=== PATIENT | female | born 1960 | race African-American/Black ===

== ENCOUNTER 2016-12-12 03:52 | Inpatient (IN) | payer OTHER ==
[2016-12-12] VITALS (11 sets, daily range): BP systolic 118–158; BP diastolic 58–79; PULSE 65–82; RESP 16–20; TEMP 96.5–98.1; O2SAT 92–97
[~2016-12-12] VITALS: Ht 170.2 cm; Wt 136.7 kg
[~2016-12-12 03:52] MED LIST: AMLO5TAB22 PO; BENZ100 PO; GABA400C5 PO; GLIP5 PO; GLUC1000 PO; HYDR12.56 PO; LISI2.5T55 PO; PIOG15 PO; ZITH250T PO
[2016-12-12] MEDS ORDERED: SODIUM CHLORIDE 0.9% FLUSH 10 ML FLUSH IVF PRN (04:30)
[2016-12-12] MEDS ORDERED: OMEP20TA PO (04:39)
[2016-12-12] MEDS ORDERED: FEXO15TA PO (04:39)
[2016-12-12] MEDS ORDERED: METF1000 PO (04:39)
[2016-12-12] MEDS ORDERED: RANI150T PO (04:39)
[2016-12-12] MEDS ORDERED: LISI2.5T3 PO (04:39)
[2016-12-12] MEDS ORDERED: METO25TA3 PO (04:39)
[2016-12-12] MEDS ORDERED: AMLO5TAB2 PO (04:39)
[2016-12-12] MEDS ORDERED: GABA400C5 PO (04:39)
[2016-12-12] MEDS ORDERED: HYDR25TA5 PO (04:39)
[2016-12-12] MEDS ORDERED: GLIP10TA6 PO (04:39)
[2016-12-12] MEDS ORDERED: LEVO75TA3 PO (04:39)
[2016-12-12] MEDS ORDERED: LEXA10TA PO (04:39)
[2016-12-12] MEDS ORDERED: NABU1TAB37 PO (04:39)
[2016-12-12] MEDS: RESP: ALBUTEROL 2.5 MG/IPRATROPIUM 0.5 MG NEB (SCH) INH ×3 (04:40→05:16)
--- NOTE | 2016-12-12 04:42 | PD ---
HPI Chief Complaint: Respiratory Symptoms Time Seen by Provider: 04:13 Travel History International Travel<30 days: No Contact w/Intl Traveler<30days: No Traveled to known affect area: No History of Present Illness HPI The patient is a 56-year-old female that complains of shortness of breath tonight. She has wheezes but denies any fever and does have a mostly nonproductive cough. She denies any history of congestive heart failure. She smokes one half pack a day. She has had bronchitis in the past. She does not have a nebulizer machine at home. The patient states she has fatigued and exhausted. PFSH Past Medical History Hx Anticoagulant Therapy: No Asthma: Yes Cardiovascular Problems: Yes (htn on meds) COPD: Yes Diabetes: Yes (type 2) Diminished Hearing: No GERD: Yes Hiatal Hernia: Yes Hypertension: Yes Menopausal: Yes : 5 Para: 4 Miscarriage: 1 Ovarian Cysts: Yes (RUPTURED, LEFT OVARY) Tubal Ligation: Yes (l. ovary and tube removal) Past Surgical History Gynecologic Surgery: Yes (LEFT SALPINGO-OOPHERECTOMY) Social History Alcohol Use: No Tobacco Use: No Substance Use: No Allergies-Medications (Allergen,Severity, Reaction): Coded Allergies: Sulfa (Sulfonamide Antibiotics) (Unverified Allergy, Severe, 12/12/16) Reported Meds & Prescriptions Reported Meds & Active Scripts Active Reported Omeprazole 20 Mg Tab 20 Mg PO DAILY [place] Allergy (Fexofenadine HCl) 180 Mg Tab 180 Mg PO DAILY Gabapentin 400 Mg Cap 400 Cap PO TID Ranitidine (Ranitidine HCl) 150 Mg Tab 150 Mg PO BID Glipizide 10 Mg Tab 10 Mg PO BIDAC Take 30 minutes before a meal Metformin (Metformin HCl) 1,000 Mg Tab 1,000 Mg PO BIDPC With meals Levothyroxine (Levothyroxine Sodium) 75 Mcg Tab 75 Mcg PO DAILY Amlodipine (Amlodipine Besylate) 5 Mg Tab 5 Mg PO DAILY Lisinopril 2.5 Mg Tab 2.5 Mg PO DAILY Lexapro (Escitalopram Oxalate) 10 Mg Tab 10 Mg PO DAILY Nabumetone 500 Mg Tab 500 Mg PO BID Metoprolol Tartrate 25 Mg Tab 25 Mg PO BID Hydrochlorothiazide 25 Mg Tab 25 Mg PO DAILY Review of Systems Except as stated in HPI: all other systems reviewed are Neg Physical Exam Narrative GENERAL: The patient is alert, oriented 3, obese and slight respiratory distress. Her vital signs show blood pressure 158/92 with oximetry 92%. Apparently, the patient was 99% after sitting but went down to 91% after walking. SKIN: Focused skin assessment warm/dry. HEAD: Atraumatic. Normocephalic. EYES: Pupils equal and round. No scleral icterus. No injection or drainage. ENT: No nasal bleeding or discharge. Mucous membranes pink and moist. NECK: Trachea midline. No JVD. CARDIOVASCULAR: Regular rate and rhythm. No murmur appreciated. RESPIRATORY: No accessory muscle use. Bilateral wheezes are heard in all lung cardona. Breath sounds equal bilaterally. GASTROINTESTINAL: Abdomen soft, non-tender, nondistended. Hepatic and splenic margins not palpable. No guarding or rebound is present. MUSCULOSKELETAL: No obvious deformities. No clubbing. No cyanosis. No edema. NEUROLOGICAL: Awake and alert. No obvious cranial nerve deficits. Motor grossly within normal limits. Normal speech. PSYCHIATRIC: Appropriate mood and affect; insight and judgment normal. Data Data Last Documented VS Vital Signs Date Time Temp Pulse Resp B/P (MAP) Pulse Ox O2 Delivery O2 Flow Rate FiO2 12/12/16 05:51 81 18 129/58 (81) 94 Room Air 12/12/16 04:19 98.1 Orders Orders Complete Blood Count With Diff (12/12/16 04:19) Basic Metabolic Panel (Bmp) (12/12/16 04:19) B-Type Natriuretic Peptide (12/12/16 04:19) Troponin I (12/12/16 04:19) Iv Access Insert/Monitor (12/12/16 04:19) Ecg Monitoring (12/12/16 04:19) Oximetry (12/12/16 04:19) Oxygen Administration (12/12/16 04:19) Chest, Pa & Lat (12/12/16 04:19) Sodium Chloride 0.9% Flush (Ns Flush) (12/12/16 04:30) Albuterol-Ipratropium Neb (Duoneb Neb) (12/12/16 04:30) Methylprednisolone So Succ Inj (Solumedr (12/12/16 05:45) Blood Culture (12/12/16 05:31) Ceftriaxone Inj (Rocephin Inj) (12/12/16 05:45) Azithromycin Inj (Zithromax Inj) (12/12/16 05:45) Arterial Blood Gas (Abg) (12/12/16 ) Labs Laboratory Tests Test 12/12/16 04:30 12/12/16 05:00 12/12/16 05:45 White Blood Count 6.9 TH/MM3 Red Blood Count 4.12 MIL/MM3 Hemoglobin 11.3 GM/DL Hematocrit 34.0 % Mean Corpuscular Volume 82.6 FL Mean Corpuscular Hemoglobin 27.5 PG Mean Corpuscular Hemoglobin Concent 33.3 % Red Cell Distribution Width 15.1 % Platelet Count 243 TH/MM3 Mean Platelet Volume 8.4 FL Neutrophils (%) (Auto) 55.4 % Lymphocytes (%) (Auto) 31.0 % Monocytes (%) (Auto) 8.9 % Eosinophils (%) (Auto) 3.8 % Basophils (%) (Auto) 0.9 % Neutrophils # (Auto) 3.8 TH/MM3 Lymphocytes # (Auto) 2.1 TH/MM3 Monocytes # (Auto) 0.6 TH/MM3 Eosinophils # (Auto) 0.3 TH/MM3 Basophils # (Auto) 0.1 TH/MM3 CBC Comment DIFF FINAL Differential Comment B-Type Natriuretic Peptide 68 PG/ML Blood Urea Nitrogen 14 MG/DL Creatinine 0.70 MG/DL Random Glucose 121 MG/DL Calcium Level 7.7 MG/DL Sodium Level 142 MEQ/L Potassium Level 3.5 MEQ/L Chloride Level 107 MEQ/L Carbon Dioxide Level 28.2 MEQ/L Anion Gap 7 MEQ/L Estimat Glomerular Filtration Rate 106 ML/MIN Troponin I LESS THAN 0.02 NG/ML Blood Gas Puncture Site RT RADIAL Blood Gas Patient Temperature 98.6 Blood Gas HCO3 28 mmol/L Blood Gas Base Excess 2.9 mmol/L Blood Gas Oxygen Saturation 89 % Arterial Blood pH 7.39 Arterial Blood Partial Pressure CO2 46 mmHG Arterial Blood Partial Pressure O2 65 mmHG Arterial Blood Oxygen Content 14.3 Vol % Arterial Blood Carboxyhemoglobin 2.7 % Arterial Blood Methemoglobin 1.1 % Blood Gas Hemoglobin 11.4 G/DL Blood Gas Inspired Oxygen 21 % [facility] Medical Decision Making Medical Screen Exam Complete: Yes Emergency Medical Condition: Yes Medical Record Reviewed: Yes Interpretation(s) The CBC shows a hemoglobin of 11.3 and hematocrit of 34.0 but is otherwise unremarkable. The basic metabolic profile shows a glucose of 121 and the calcium of 7.7 but the rest of the basic metabolic profile is normal. The chest x-ray shows bilateral infiltrates present. The troponin I is normal. The blood gases show pH 7.39, CO2 46, PO2 65 with O2 sat 89%. Carboxyhemoglobin is 2.7. The BNP is normal. Differential Diagnosis Asthma, bronchitis, pneumonia, pneumothorax-unlikely, congestive heart failure- unlikely Narrative Course It is now 0524 and the patient is not wheezing but bilateral rhonchi are heard. The chest x-ray shows bilateral infiltrates. The patient's oximetry drops to 91/90 with any walking or exertion. The patient also has a low O2 saturation of 89% on blood gases that were drawn almost immediately after 3 DuoNeb treatments. The patient is extremely fatigued and exhausted. She is not a good candidate for at-home treatment. Impression: Community-acquired pneumonia, hypoxemia Procedures EKG Prior to Arrival: No Physician Communication Physician Communication I discussed the patient with Dr. Gil, the patient will be admitted to her. Diagnosis Primary Impression: Community acquired pneumonia Additional Impression: Hypoxemia Admitting Information Admitting Physician Requests: Admit Mike Dillon MD Dec 12, 2016 04:42
[2016-12-12 04:51] LABS: AUTOMATED NEUTROPHIL # 3.8 TH/MM3 (1.8-7.7); BASOPHIL # 0.1 TH/MM3 (0-0.2); BASOPHIL % 0.9 % (0.0-2.0); EOSINOPHIL # 0.3 TH/MM3 (0-0.4); EOSINOPHIL % 3.8 % (0.0-4.0); HEMO FLAGS DIFF FINAL; LYMPHOCYTE # 2.1 TH/MM3 (1.0-4.8); MEAN CELL VOLUME 82.6 FL (80.0-100.0); MEAN CORPUSCULAR HEMOGLOBIN 27.5 PG (27.0-34.0); MEAN CORPUSCULAR HGB CONC 33.3 % (32.0-36.0); MONO % 8.9 % (0.0-8.0); NEUT % 55.4 % (16.0-70.0); PLATELET COUNT 243 TH/MM3 (150-450); RED BLOOD COUNT 4.12 MIL/MM3 (4.00-5.30); RED CELL DISTRIBUTION WIDTH 15.1 % (11.6-17.2); WHITE BLOOD COUNT 6.9 TH/MM3 (4.0-11.0)
--- NOTE | 2016-12-12 05:25 | RADRPT ---
EXAM DATE/TIME: 12/12/2016 04:30 [place] COMPARISON: No previous studies available for comparison. INDICATIONS : Shortness of breath. MEDICAL HISTORY : Hypertension. Chronic obstructive pulmonary disease. Asthma. SURGICAL HISTORY : None. ENCOUNTER: Initial ACUITY: 2 days PAIN SCORE: 0/10 LOCATION: Bilateral chest FINDINGS: Diffuse bibasilar predominant bilateral infiltrates are present. No large effusion seen. No pneumotho rax. Heart size is normal. CONCLUSION: Bilateral airspace disease. Bharat Razo MD on December 12, 2016 at 5:23 Board Certified Radiologist. This report was verified electronically.
[2016-12-12 05:27] LABS: CHLORIDE 107 MEQ/L (98-107); POTASSIUM 3.5 MEQ/L (3.5-5.1); SODIUM (NA) 142 MEQ/L (136-145)
[2016-12-12 05:30] LABS: ANION GAP 7 MEQ/L (5-15); BICARBONATE 28.2 MEQ/L (21.0-32.0); BLOOD UREA NITROGEN 14 MG/DL (7-18)
[2016-12-12 05:33] LABS: GLOMERULAR FILTRATION RATE 106 ML/MIN (>89)
[2016-12-12] MEDS ORDERED: methylPREDNISolone SOD SUCC 125 MG/2 ML VIAL IV PUSH ONE (05:45)
[2016-12-12] MEDS ORDERED: AZITHROMYCIN INJ 500 MG in SODIUM CHLOR 0.9% 250 ML INJ 250 ML IV ONE (05:45)
[2016-12-12] MEDS ORDERED: cefTRIAXone INJ 1,000 MG in SODIUM CHLORIDE 0.9% INJ 100 ML IV ONE (05:45)
[2016-12-12 05:55] LABS: BLOOD GAS BASE EXCESS 2.9 mmol/L (-2-2); BLOOD GAS CARBOXYHEMOGLOBIN 2.7 % (0-4); BLOOD GAS HCO3 28 mmol/L (22-26); BLOOD GAS METHEMOGLOBIN 1.1 % (0-2); BLOOD GAS O2 HGB SATURATION 89 % (90-100); BLOOD GAS OXYGEN CONTENT 14.3 Vol % (12.0-20.0); BLOOD GAS PCO2 46 mmHG (38-42); BLOOD GAS PO2 65 mmHG (61-120); BLOOD GAS TOTAL HGB 11.4 G/DL (12.0-16.0); TEMP CORR TO 98.6
[2016-12-12 05:56] LABS: CRITICAL VALUE YES; DRAW SITE RT RADIAL; FIO2 21 %; NUMBER OF ARTERIAL PUNCTURES 2; STAT YES; ULNAR PULSE PRESENT
[2016-12-12] MEDS ORDERED: LACTULOSE SYRUP 20 GM/30 ML CUP PO PRN (06:15)
[2016-12-12] MEDS ORDERED: DEXTROSE 50% IN WATER 50 ML VIAL(D50) IV PUSH PRN (06:15)
[2016-12-12] MEDS ORDERED: RESP: ALBUTEROL 2.5 MG/IPRATROPIUM 0.5 MG NEB (PRN) NEB ×2 (06:15→09:15)
[2016-12-12] MEDS ORDERED: ONDANSETRON HCL 4 MG/2 ML VIAL IVP PRN (06:15)
[2016-12-12] MEDS ORDERED: SENNOSIDES 8.6 MG TAB PO PRN (06:15)
[2016-12-12] MEDS ORDERED: GLUCAGON 1 MG/ML VIAL OTHER PRN (06:15)
[2016-12-12] MEDS ORDERED: oxyCODONE/ACETAMINOPHEN 5 MG/325 MG TAB PO PRN (06:15)
[2016-12-12] MEDS ORDERED: ACETAMINOPHEN 325 MG TAB PO PRN (06:15)
[2016-12-12] MEDS ORDERED: BISACODYL 10 MG SUPP RECTAL PRN (06:15)
[2016-12-12] MEDS ORDERED: SODIUM CHLORIDE 0.9% FLUSH 10 ML FLUSH IV FLUSH PRN (06:15)
[2016-12-12] MEDS: oxyCODONE/ACETAMINOPHEN 10 MG/325 MG TAB PO PRN ×3 (06:43→17:07)
[2016-12-12] MEDS ORDERED: oxyCODONE/ACETAMINOPHEN 7.5 MG/325 MG TAB PO ONE (06:45)
[2016-12-12] MEDS ORDERED: PILL SPLITTER OTHER PRN (06:45)
[2016-12-12] MEDS: metFORMIN HCL 500 MG TAB PO SCH ×2 (08:35→17:06)
[2016-12-12] MEDS: INSULIN ASPART SUPPLEMENTAL SCALE SQ SCH ×4 (08:35→21:19)
[2016-12-12] MEDS: SODIUM CHLORIDE 0.9% FLUSH 10 ML FLUSH IV FLUSH SCH ×2 (08:35→21:18)
[2016-12-12] MEDS: DOCUSATE SODIUM 50 MG/SENNA 8.6 MG TAB PO SCH ×2 (08:36→21:18)
[2016-12-12] MEDS: amLODIPine BESYLATE 5 MG TAB PO SCH (08:36)
[2016-12-12] MEDS: PANTOPRAZOLE SOD 20 MG DELAYED RELEASE TAB PO SCH (08:36)
[2016-12-12] MEDS: METOPROLOL TARTRATE 25 MG TAB PO SCH ×2 (08:36→21:18)
[2016-12-12] MEDS: GABAPENTIN 400 MG CAP PO SCH ×3 (08:36→17:06)
[2016-12-12] MEDS: LISINOPRIL 5 MG TAB PO SCH (08:36)
[2016-12-12] MEDS: ESCITALOPRAM OXALATE 10 MG TAB PO SCH (08:36)
[2016-12-12] MEDS ORDERED: POTASSIUM CHLORIDE 20 MEQ CONTROLLED RELEASE TAB PO ONE (09:15)
[2016-12-12] MEDS ORDERED: FUROSEMIDE 40 MG/4 ML VIAL IV PUSH ONE (09:15)
[2016-12-12] MEDS: HYDROCHLOROTHIAZIDE 25 MG TAB PO SCH (10:11)
[2016-12-12] MEDS: LEVOTHYROXINE SODIUM 75 MCG TAB PO SCH (10:11)
--- NOTE | 2016-12-12 11:48 | HHI.HP ---
[facility] Service [facility] Primary Care Physician Silas Leon M.D. Admission Diagnosis community-acquired bilateral pneumonia, hypoxemia Diagnoses: (1) Community acquired pneumonia Diagnosis: Principal (2) Hypoxemia Diagnosis: Principal (3) Chronic obstructive pulmonary disease Diagnosis: Principal Chief Complaint: Shortness of breath, dyspnea, lower extremity edema Travel History International Travel<30 Days: No Contact w/Intl Traveler <30 Da: No Traveled to Known Affected Are: No History of Present Illness Written by Jon Dillon, acting as scribe for Dr. Martin on 12/12/16 at 11 :35. 86-year-old female with known history of chronic affective pulmonary disease, chronic smoking, hypertension, history of tachycardia, diabetes, panic attacks who presented to hospital because of shortness of breath, dyspnea. Patient states that over the last 1-1/2 weeks she has been having a cough with clear phlegm production. She started developing a pain in her back around the right lower rib cage that has progressively getting worse. She states that Monday of this week she ran out of her HCTZ. As well as she ran out of her Proventil inhaler. Since then she's been experiencing increased lower extremity edema, dyspnea on exertion, shortness of breath, and orthopnea. Patient states that she cannot lay flat at all that she has to prop herself up and a full sitting position. Patient states that she does have COPD and she used to use Proventil as well as Advair. However she has ran out of those medications. Because her symptoms did not improve she came to the emergency department for evaluation. Patient had workup done which did indicate bilateral infiltrates on chest x-ray , hypoxemia with O2 saturation 89% with ABG.. Patient states that she did have significant wheezing. She was given nebulizer treatments in the emergency department with significant improvement of her respiratory status. Patient was recommended admission for further evaluation and management. Review of Systems Respiratory: COMPLAINS OF: Cough, Sputum production, Shortness of breath Cardiovascular: COMPLAINS OF: Dyspnea on Exertion, Lower Extremity Edema, Orthopnea Except as stated in HPI: all other systems reviewed are Neg Past Family Social History Past Medical History Hypertension Chronic obstructive pulmonary disease Panic attacks Diabetes Gastroesophageal reflux History of tachycardia 1 month ago with heart rate 240 improved with vagal maneuver and simply followed by manufacturing specialist and placed on metoprolol Past Surgical History Left salpingo-oophorectomy Reported Medications Last Impressions Chest X-Ray 12/12/16 0419 Signed Impressions: Service Date/Time: Monday, December 12, 2016 04:30 - CONCLUSION: Bilateral airspace disease. Bharat Razo MD Allergies: Coded Allergies: Sulfa (Sulfonamide Antibiotics) (Unverified Allergy, Severe, 12/12/16) Family History Reviewed is significant for mother with diabetes, hypertension, father with diabetes, hypertension, hyperlipidemia, seizures, brother with prostate cancer and colon cancer Social History Patient continues to smoke one half pack a cigarettes a day since she was 23 years old. Drinks alcohol occasionally. Denies any illicit drugs Physical Exam Vital Signs Vital Signs Date Time Temp Pulse Resp B/P (MAP) Pulse Ox O2 Delivery O2 Flow Rate FiO2 12/12/16 08:00 96.8 74 20 135/79 (97) 95 12/12/16 07:51 12/12/16 07:30 18 12/12/16 07:06 78 16 144/59 (87) 96 Nasal Cannula 2.00 12/12/16 05:51 81 18 129/58 (81) 94 Room Air 12/12/16 04:22 66 18 92 Room Air 12/12/16 04:22 92 Room Air 12/12/16 04:22 92 12/12/16 04:19 98.1 65 18 134/61 (85) 92 12/12/16 03:57 98.1 74 18 158/72 (100) 92 Physical Exam GENERAL: Well-developed, well-nourished, in no acute distress. alert and orientated HEENT: Head is normocephalic without any lesions or masses noted. Facial features are symmetric. Eyes: Pupils equal round reactive to light. Extraocular muscles are intact. Conjunctivae were clear. Oropharyngeal: Pharynx without any erythema edema. Tongue is midline without deviation. Buccal mucosa is moist without any masses or lesions NECK: Supple without any masses. Trachea midline no deviation. No JVD, no bruits are appreciated CARDIAC: Regular rhythm, regular rate. S1/S2 are heard. No murmurs gallops or rubs. LUNGS: Fine crackles noted in the bases, No wheeze, rhonchi. No use of accessory muscles on inspiration or expiration. Patient with forced speech due to shortness of breath, cannot speak full sentences ABDOMEN: Soft, nontender. Nondistended. Bowel sounds heard in all 4 quadrants. No organomegaly or masses. Negative rebound, negative guarding EXTREMITIES: 2+ pitting edema noted bilateral lower extremity, pulses are equal bilaterally. No cyanosis or clubbing NEUROLOGY: Mood and affect appear appropriate. Cranial nerves II through XII grossly intact. Muscle strength 5/5 in upper and lower extremities bilaterally. Deep tendon reflexes are 2+ in upper and lower extremities bilaterally. Laboratory Laboratory Tests Test 12/12/16 04:30 12/12/16 05:00 12/12/16 05:45 White Blood Count 6.9 Red Blood Count 4.12 Hemoglobin 11.3 Hematocrit 34.0 Mean Corpuscular Volume 82.6 Mean Corpuscular Hemoglobin 27.5 Mean Corpuscular Hemoglobin Concent 33.3 Red Cell Distribution Width 15.1 Platelet Count 243 Mean Platelet Volume 8.4 Neutrophils (%) (Auto) 55.4 Lymphocytes (%) (Auto) 31.0 Monocytes (%) (Auto) 8.9 Eosinophils (%) (Auto) 3.8 Basophils (%) (Auto) 0.9 Neutrophils # (Auto) 3.8 Lymphocytes # (Auto) 2.1 Monocytes # (Auto) 0.6 Eosinophils # (Auto) 0.3 Basophils # (Auto) 0.1 CBC Comment DIFF FINAL Differential Comment B-Type Natriuretic Peptide 68 Blood Urea Nitrogen 14 Creatinine 0.70 Random Glucose 121 Calcium Level 7.7 Sodium Level 142 Potassium Level 3.5 Chloride Level 107 Carbon Dioxide Level 28.2 Anion Gap 7 Estimat Glomerular Filtration Rate 106 Troponin I LESS THAN 0.02 Blood Gas Puncture Site RT RADIAL Blood Gas Patient Temperature 98.6 Blood Gas HCO3 28 Blood Gas Base Excess 2.9 Blood Gas Oxygen Saturation 89 Arterial Blood pH 7.39 Arterial Blood Partial Pressure CO2 46 Arterial Blood Partial Pressure O2 65 Arterial Blood Oxygen Content 14.3 Arterial Blood Carboxyhemoglobin 2.7 Arterial Blood Methemoglobin 1.1 Blood Gas Hemoglobin 11.4 Blood Gas Inspired Oxygen 21 Date/Time Source Procedure Growth Status 12/12/16 05:40 Blood Peripheral Aerobic Blood Culture Pending Received 12/12/16 05:40 Blood Peripheral Anaerobic Blood Culture Pending Received Result Diagram: 12/12/16 0430 12/12/16 0500 Imaging Last Impressions Chest X-Ray 12/12/16418 Signed Impressions: Service Date/Time: Monday, December 12, 2016 04:30 - CONCLUSION: Bilateral airspace disease. MD Olive Niño VTE Risk Assessment Olive VTE Risk Assessment: Mod/High Risk (score >= 2) Porfiriorini Risk Assessment Model Point Value = 1 Point Value = 2 Point Value = 3 Point Value = 5 Age 41-60 Minor surgery BMI > 25 kg/m2 Swollen legs Varicose veins or History of unexplained or recurrent spontaneous Oral contraceptives or hormone replacement Sepsis (< 1 month) Serious lung disease, including pneumonia (< 1 month) Abnormal pulmonary function Acute myocardial infarction Congestive heart failure (< 1 month) History of inflammatory bowel disease Medical patient at bed rest Age 61-74 Arthroscopic surgery Major open surgery (> 45 min) Laparoscopic surgery (> 45 min) Malignancy Confined to bed (> 72 hours) Immobilizing plaster cast Central venous access Age >= 75 History of VTE Family history of VTE Factor V Leiden Prothrombin [id number] Lupus anticoagulant Anticardiolipin antibodies Elevated serum homocysteine Heparin-induced thrombocytopenia Other congenital or acquired thrombophilia Stroke (< 1 month) Elective arthroplasty Hip, pelvis, or leg fracture Acute spinal cord injury (< 1 month) Prophylaxis Regimen Total Risk Factor Score Risk Level Prophylaxis Regimen 0-1 Low Early ambulation 2 Moderate Order ONE of the following: *Sequential Compression Device (SCD) *Heparin 5000 units SQ BID 3-4 Higher Order ONE of the following medications: *Heparin 5000 units SQ TID *Enoxaparin/Lovenox 40 mg SQ daily (WT < 150 kg, CrCl > 30 mL/min) *Enoxaparin/Lovenox 30 mg SQ daily (WT < 150 kg, CrCl > 10-29 mL/min) *Enoxaparin/Lovenox 30 mg SQ BID (WT < 150 kg, CrCl > 30 mL/min) AND/OR *Sequential Compression Device (SCD) 5 or more Highest Order ONE of the following medications: *Heparin 5000 units SQ TID (Preferred with Epidurals) *Enoxaparin/Lovenox 40 mg SQ daily (WT < 150 kg, CrCl > 30 mL/min) *Enoxaparin/Lovenox 30 mg SQ daily (WT < 150 kg, CrCl > 10-29 mL/min) *Enoxaparin/Lovenox 30 mg SQ BID (WT < 150 kg, CrCl > 30 mL/min) AND *Sequential Compression Device (SCD) Assessment and Plan Assessment and Plan 56-year-old female who presented to hospital because of Shortness of breath, dyspnea which is multifactorial with patient with known history of COPD, running out of her prescriptions Chronic obstructive pulmonary disease, possible exacerbation Blood gases indicate hypoxia and hypercapnia Continue O2 supplementation to maintain O2 sats greater 92% Continue Solu-Medrol Continue nebulizer treatment Continue Rocephin/Zithromax Bilateral airspace disease, etiology would include community-acquired pneumonia , interstitial fluid Patient started on antibiotics for required pneumonia to include Rocephin/ Zithromax Will give Lasix 40 mg IV 1, since patient does have lower extremity edema, has been out of HCTZ for 5 days BNP is 68 Hypertension Continue home medications Diabetes Accu-Cheks with sliding scale insulin Anticipate glucose worsening secondary to steroids Recent history of SVT - cont metoprolol DVT prevention sequential compression devices This note was transcribed by scribe. Borges, Dr. Mariluz Martin personally performed the history, physical exam, and medical decision making; and confirmed the accuracy of the information in the transcribed note, added one amendment. Authenticated by Dr. Mariluz Martin on 12/12/16 at 12:45. Physician Certification 2 Midnight Certification Type: Admission for Inpatient Services Order for Inpatient Services The services are ordered in accordance with Medicare regulations or non- Medicare payer requirements, as applicable. In the case of services not specified as inpatient-only, they are appropriately provided as inpatient services in accordance with the 2-midnight benchmark. Estimated LOS (days): 3 days is the estimated time the patient will need to remain in the hospital, assuming treatment plan goals are met and no additional complications. Post-Hospital Plan: Not yet determined Jon Dillon Dec 12, 2016 11:48 Mariluz Martin MD Dec 12, 2016 12:45
[2016-12-12] MEDS: methylPREDNISolone SOD SUCC 40 MG/1 ML VIAL IV PUSH SCH ×2 (13:38→21:19)
[2016-12-12] MEDS: RESP: ALBUTEROL 2.5 MG/IPRATROPIUM 0.5 MG NEB (SCH) NEB ×2 (14:07→19:25)
[2016-12-12] MEDS: guaiFENesin/DEXTROMETHORPHAN 200 MG/20 MG/10 ML CUP PO PRN (16:03)
[2016-12-13] VITALS (9 sets, daily range): BP systolic 119–131; BP diastolic 70–82; PULSE 63–85; RESP 18–22; TEMP 97.2–98.5; O2SAT 93–99
[2016-12-13] MEDS: oxyCODONE/ACETAMINOPHEN 10 MG/325 MG TAB PO PRN ×4 (03:06→22:26)
[2016-12-13] MEDS: methylPREDNISolone SOD SUCC 40 MG/1 ML VIAL IV PUSH SCH ×3 (05:09→21:21)
[2016-12-13] MEDS: LEVOTHYROXINE SODIUM 75 MCG TAB PO SCH (05:09)
[2016-12-13] MEDS: cefTRIAXone INJ 1,000 MG in SODIUM CHLORIDE 0.9% INJ 100 ML IV SCH (05:09)
[2016-12-13 05:46] LABS: AUTOMATED NEUTROPHIL # 7.4 TH/MM3 (1.8-7.7); BASOPHIL % 0.1 % (0.0-2.0); CHLORIDE 100 MEQ/L (98-107); EOSINOPHIL % 0.2 % (0.0-4.0); HEMATOCRIT 33.4 % (35.0-46.0); HEMO FLAGS DIFF FINAL; LYMPH % 14.3 % (9.0-44.0); LYMPHOCYTE # 1.3 TH/MM3 (1.0-4.8); MEAN CELL VOLUME 83.9 FL (80.0-100.0); MEAN CORPUSCULAR HEMOGLOBIN 27.7 PG (27.0-34.0); MONO % 3.7 % (0.0-8.0); NEUT % 81.7 % (16.0-70.0); PLATELET COUNT 267 TH/MM3 (150-450); POTASSIUM 3.8 MEQ/L (3.5-5.1); RED BLOOD COUNT 3.98 MIL/MM3 (4.00-5.30); RED CELL DISTRIBUTION WIDTH 15.3 % (11.6-17.2); SODIUM (NA) 137 MEQ/L (136-145)
[2016-12-13 06:06] LABS: ALKALINE PHOSPHATASE 73 U/L (45-117); ALT (GPT) 24 U/L (10-53); ANION GAP 8 MEQ/L (5-15); AST (GOT) 14 U/L (15-37); BICARBONATE 29.3 MEQ/L (21.0-32.0); BLOOD UREA NITROGEN 18 MG/DL (7-18); GLOMERULAR FILTRATION RATE 96 ML/MIN (>89); TOTAL BILIRUBIN ADULT 0.2 MG/DL (0.2-1.0)
[2016-12-13] MEDS: RESP: ALBUTEROL 2.5 MG/IPRATROPIUM 0.5 MG NEB (SCH) NEB ×3 (07:27→19:31)
[2016-12-13] MEDS: AZITHROMYCIN INJ 500 MG in SODIUM CHLOR 0.9% 250 ML INJ 250 ML IV SCH (08:51)
[2016-12-13] MEDS: SODIUM CHLORIDE 0.9% FLUSH 10 ML FLUSH IV FLUSH SCH ×2 (08:52→21:21)
[2016-12-13] MEDS: amLODIPine BESYLATE 5 MG TAB PO SCH (08:52)
[2016-12-13] MEDS: LISINOPRIL 5 MG TAB PO SCH (08:52)
[2016-12-13] MEDS: INSULIN ASPART SUPPLEMENTAL SCALE SQ SCH ×4 (08:52→21:21)
[2016-12-13] MEDS: metFORMIN HCL 500 MG TAB PO SCH ×2 (08:52→17:52)
[2016-12-13] MEDS: DOCUSATE SODIUM 50 MG/SENNA 8.6 MG TAB PO SCH ×2 (08:53→21:21)
[2016-12-13] MEDS: ESCITALOPRAM OXALATE 10 MG TAB PO SCH (08:53)
[2016-12-13] MEDS: METOPROLOL TARTRATE 25 MG TAB PO SCH ×2 (08:53→21:21)
[2016-12-13] MEDS: GABAPENTIN 400 MG CAP PO SCH ×3 (08:53→17:53)
[2016-12-13] MEDS: PANTOPRAZOLE SOD 20 MG DELAYED RELEASE TAB PO SCH (08:53)
[2016-12-13] MEDS: HYDROCHLOROTHIAZIDE 25 MG TAB PO SCH (08:54)
[2016-12-13] MEDS: guaiFENesin/DEXTROMETHORPHAN 200 MG/20 MG/10 ML CUP PO PRN (08:54)
[2016-12-13] MEDS ORDERED: PIOG15 PO (09:01)
[2016-12-13] MEDS ORDERED: INFLUENZA VIRUS VACCINE (QUADRIVALENT) 0.5 ML SYR IM ONE (10:00)
--- NOTE | 2016-12-13 12:50 | HHI.PR ---
Subjective Remarks Patient states she feels much improved today. Last short of breath. Cough is improved. She does get coughing fits after exerting herself. Objective Vitals Vital Signs Date Time Temp Pulse Resp B/P (MAP) Pulse Ox O2 Delivery O2 Flow Rate FiO2 12/13/16 08:00 97.9 66 18 127/74 (91) 95 12/13/16 07:40 96 21 12/13/16 07:29 97 Nasal Cannula 2.00 12/13/16 00:00 98.1 67 20 125/82 (96) 99 12/12/16 20:00 97.0 77 17 121/69 (86) 95 12/12/16 19:25 94 21 12/12/16 18:07 18 12/12/16 16:00 97.6 82 20 128/68 (88) 97 12/12/16 14:08 95 Nasal Cannula 2.00 I/O 12/12/16 12/12/16 12/12/16 12/13/16 12/13/16 12/13/16 07:00 15:00 23:00 07:00 15:00 23:00 Intake Total 100 ml 550 ml 780 ml 120 ml Output Total 301 ml Balance 100 ml 550 ml 479 ml 120 ml Intake Oral 300 ml 780 ml 120 ml IV Total 100 ml 250 ml Output Urine Total 301 ml # Voids 1 5 2 # Bowel Movements 0 Result Diagram: 12/13/16 0450 12/13/16 0450 Objective Remarks GENERAL: Well-nourished, well-developed pleasant obese Afro-[place] female patient. SKIN: Warm and dry. HEAD: Normocephalic. EYES: No scleral icterus. No injection or drainage. NECK: Supple, trachea midline. No JVD or lymphadenopathy. CARDIOVASCULAR: Regular rate and rhythm without murmurs, gallops, or rubs. RESPIRATORY: Breath sounds equal bilaterally. Prolonged expiratory phase bilaterally. No accessory muscle use. GASTROINTESTINAL: Abdomen soft, non-tender, nondistended. EXTREMITIES: No cyanosis, or edema. NEUROLOGICAL: Awake, alert, and oriented x 3. Non-focal. A/P Problem List: (1) Community acquired pneumonia ICD Code: J18.9 - Pneumonia, unspecified organism Status: Acute (2) Hypoxemia ICD Code: R09.02 - Hypoxemia Status: Acute (3) Chronic obstructive pulmonary disease ICD Code: J44.9 - Chronic obstructive pulmonary disease, unspecified Assessment and Plan 56-year-old female who presented to hospital because of Shortness of breath, dyspnea which is multifactorial with patient with known history of COPD, running out of her prescriptions Chronic obstructive pulmonary disease with exacerbation Blood gases indicate hypoxia and hypercapnia Continue O2 supplementation to maintain O2 sats greater 92% Continue Solu-Medrol Continue nebulizer treatment Continue Rocephin/Zithromax -Smoking cessation advised Bibasilar community-acquired pneumonia - improved Continue Rocephin/Zithromax s/p Lasix 40 mg IV 1, since patient does have lower extremity edema, has been out of HCTZ for 5 days BNP is 68 Hypertension Continue home medications Diabetes Accu-Cheks with sliding scale insulin Metformin Recent history of SVT - cont metoprolol DVT prevention sequential compression devices Mariluz Martin MD Dec 13, 2016 12:50
[2016-12-13] MEDS: BENZONATATE 100 MG CAP PO PRN (21:21)
[2016-12-14] VITALS (8 sets, daily range): BP systolic 123–141; BP diastolic 60–76; PULSE 59–70; RESP 20–22; TEMP 97–98; O2SAT 93–98
[2016-12-14] MEDS: cefTRIAXone INJ 1,000 MG in SODIUM CHLORIDE 0.9% INJ 100 ML IV SCH (05:27)
[2016-12-14] MEDS: methylPREDNISolone SOD SUCC 40 MG/1 ML VIAL IV PUSH SCH ×3 (05:28→20:39)
[2016-12-14] MEDS: LEVOTHYROXINE SODIUM 75 MCG TAB PO SCH (05:28)
[2016-12-14] MEDS: BENZONATATE 100 MG CAP PO PRN ×2 (05:46→21:18)
[2016-12-14] MEDS: oxyCODONE/ACETAMINOPHEN 10 MG/325 MG TAB PO PRN ×3 (07:24→21:14)
[2016-12-14] MEDS: RESP: ALBUTEROL 2.5 MG/IPRATROPIUM 0.5 MG NEB (SCH) NEB ×3 (07:40→21:06)
[2016-12-14] MEDS: GABAPENTIN 400 MG CAP PO SCH ×3 (08:13→17:52)
[2016-12-14] MEDS: PANTOPRAZOLE SOD 20 MG DELAYED RELEASE TAB PO SCH (08:13)
[2016-12-14] MEDS: DOCUSATE SODIUM 50 MG/SENNA 8.6 MG TAB PO SCH ×2 (08:13→20:39)
[2016-12-14] MEDS: ESCITALOPRAM OXALATE 10 MG TAB PO SCH (08:14)
[2016-12-14] MEDS: metFORMIN HCL 500 MG TAB PO SCH ×2 (08:14→17:52)
[2016-12-14] MEDS: HYDROCHLOROTHIAZIDE 25 MG TAB PO SCH (08:14)
[2016-12-14] MEDS: amLODIPine BESYLATE 5 MG TAB PO SCH (08:15)
[2016-12-14] MEDS: LISINOPRIL 5 MG TAB PO SCH (08:15)
[2016-12-14] MEDS: METOPROLOL TARTRATE 25 MG TAB PO SCH ×2 (08:15→20:39)
[2016-12-14] MEDS: INSULIN ASPART SUPPLEMENTAL SCALE SQ SCH ×4 (08:16→21:12)
[2016-12-14] MEDS: AZITHROMYCIN INJ 500 MG in SODIUM CHLOR 0.9% 250 ML INJ 250 ML IV SCH (08:16)
[2016-12-14] MEDS: SODIUM CHLORIDE 0.9% FLUSH 10 ML FLUSH IV FLUSH SCH ×2 (08:17→20:41)
--- NOTE | 2016-12-14 09:54 | HHI.PR ---
Subjective Remarks Patient is not feeling any improved since yesterday. She had a severe dry coughing spell last night that resolved with Tessalon Perles. This morning she felt quite wheezy. Objective Vitals Vital Signs Date Time Temp Pulse Resp B/P (MAP) Pulse Ox O2 Delivery O2 Flow Rate FiO2 12/14/16 08:16 18 12/14/16 08:11 61 12/14/16 08:00 97.2 59 20 126/60 (82) 93 12/14/16 07:41 97 21 12/14/16 04:00 21 12/14/16 00:00 97.0 70 22 123/63 (83) 94 12/13/16 20:00 97.2 85 22 130/70 (90) 94 12/13/16 19:30 94 21 12/13/16 16:00 98.2 80 18 131/72 (91) 95 12/13/16 15:21 93 21 12/13/16 12:00 98.5 63 18 119/70 (86) 95 I/O 12/13/16 12/13/16 12/13/16 12/14/16 12/14/16 12/14/16 07:00 15:00 23:00 07:00 15:00 23:00 Intake Total 120 ml 1080 ml 340 ml Output Total 800 ml 800 ml 920 ml Balance 120 ml -800 ml 280 ml -580 ml Intake Oral 120 ml 950 ml 240 ml IV Total 130 ml 100 ml Output Urine Total 800 ml 800 ml 920 ml # Voids 2 2 3 2 # Bowel Movements 0 1 0 Result Diagram: 12/13/16 0450 12/13/16 045 Objective Remarks GENERAL: Well-nourished, well-developed pleasant obese Afro-[place] female patient. SKIN: Warm and dry. HEAD: Normocephalic. EYES: No scleral icterus. No injection or drainage. NECK: Supple, trachea midline. No JVD or lymphadenopathy. CARDIOVASCULAR: Regular rate and rhythm without murmurs, gallops, or rubs. RESPIRATORY: Breath sounds equal bilaterally. Prolonged expiratory phase bilaterally with end expiratory wheeze. No accessory muscle use. GASTROINTESTINAL: Abdomen soft, non-tender, nondistended. EXTREMITIES: No cyanosis, or edema. NEUROLOGICAL: Awake, alert, and oriented x 3. Non-focal. A/P Problem List: (1) Community acquired pneumonia ICD Code: J18.9 - Pneumonia, unspecified organism Status: Acute (2) Hypoxemia ICD Code: R09.02 - Hypoxemia Status: Acute (3) Chronic obstructive pulmonary disease ICD Code: J44.9 - Chronic obstructive pulmonary disease, unspecified Assessment and Plan 56-year-old female who presented to hospital because of Shortness of breath, dyspnea Chronic obstructive pulmonary disease with exacerbation Blood gases indicated hypoxia and hypercapnia Continue O2 supplementation to maintain O2 sats greater 92% Continue Solu-Medrol Continue nebulizer treatment Continue Rocephin/Zithromax -Smoking cessation advised -Walk test today Bibasilar community-acquired pneumonia - improved Continue Rocephin/Zithromax s/p Lasix 40 mg IV 1, since patient does have lower extremity edema, has been out of HCTZ for 5 days BNP is 68 Hypertension Continue home medications Diabetes Accu-Cheks with sliding scale insulin Metformin Recent history of SVT - cont metoprolol DVT prevention sequential compression devices Mariluz Martin MD Dec 14, 2016 09:54
[2016-12-14] MEDS: MAGNESIUM HYDROXIDE SUSP 30 ML CUP PO PRN (17:51)
[2016-12-15 04:00] VITALS: BP 128/79; PULSE 65; RESP 20; TEMP 98; O2SAT 96
[2016-12-15] MEDS: LEVOTHYROXINE SODIUM 75 MCG TAB PO SCH (05:58)
[2016-12-15] MEDS: methylPREDNISolone SOD SUCC 40 MG/1 ML VIAL IV PUSH SCH (05:59)
[2016-12-15] MEDS: cefTRIAXone INJ 1,000 MG in SODIUM CHLORIDE 0.9% INJ 100 ML IV SCH (05:59)
[2016-12-15 07:37] VITALS: O2SAT 93
[2016-12-15] MEDS: RESP: ALBUTEROL 2.5 MG/IPRATROPIUM 0.5 MG NEB (SCH) NEB (07:39)
[2016-12-15 08:16] VITALS: BP 178/89; PULSE 55; RESP 16; TEMP 97; O2SAT 95
[2016-12-15] MEDS: ESCITALOPRAM OXALATE 10 MG TAB PO SCH (08:18)
[2016-12-15] MEDS: BENZONATATE 100 MG CAP PO PRN (08:18)
[2016-12-15] MEDS: HYDROCHLOROTHIAZIDE 25 MG TAB PO SCH (08:18)
[2016-12-15] MEDS: LISINOPRIL 5 MG TAB PO SCH (08:19)
[2016-12-15] MEDS: metFORMIN HCL 500 MG TAB PO SCH (08:19)
[2016-12-15] MEDS: DOCUSATE SODIUM 50 MG/SENNA 8.6 MG TAB PO SCH (08:19)
[2016-12-15] MEDS: PANTOPRAZOLE SOD 20 MG DELAYED RELEASE TAB PO SCH (08:19)
[2016-12-15] MEDS: GABAPENTIN 400 MG CAP PO SCH (08:19)
[2016-12-15] MEDS: amLODIPine BESYLATE 5 MG TAB PO SCH (08:19)
[2016-12-15] MEDS: oxyCODONE/ACETAMINOPHEN 10 MG/325 MG TAB PO PRN (08:20)
[2016-12-15] MEDS: METOPROLOL TARTRATE 25 MG TAB PO SCH (08:20)
[2016-12-15] MEDS: MAGNESIUM HYDROXIDE SUSP 30 ML CUP PO PRN (08:21)
[2016-12-15] MEDS: INSULIN ASPART SUPPLEMENTAL SCALE SQ SCH ×2 (08:28→11:49)
[2016-12-15] MEDS: SODIUM CHLORIDE 0.9% FLUSH 10 ML FLUSH IV FLUSH SCH (08:29)
[2016-12-15] MEDS ORDERED: AZITHROMYCIN 250 MG TAB PO SCH (09:00)
[2016-12-15] MEDS ORDERED: FLUT1INH INH (09:29)
[2016-12-15] MEDS ORDERED: LEVA750T9 PO (09:29)
[2016-12-15] MEDS ORDERED: MEDR4PAK PO (09:29)
[2016-12-15] MEDS ORDERED: VENTAER INH (09:30)
--- NOTE | 2016-12-15 10:10 | HHI.DS ---
Discharge Summary Admission Date Dec 12, 2016 at 06:15 Discharge Date: Dec 15, 2016 Admitting Diagnosis community-acquired bilateral pneumonia, hypoxemia (1) Community acquired pneumonia ICD Code: J18.9 - Pneumonia, unspecified organism Diagnosis: Principal Status: Acute (2) Hypoxemia ICD Code: R09.02 - Hypoxemia Diagnosis: Principal Status: Acute (3) Chronic obstructive pulmonary disease ICD Code: J44.9 - Chronic obstructive pulmonary disease, unspecified Diagnosis: Principal Brief History - From Admission Written by Jon Dillon, acting as scribe for Dr. Martin on 12/12/16 at 11 :35. 86-year-old female with known history of chronic affective pulmonary disease, chronic smoking, hypertension, history of tachycardia, diabetes, panic attacks who presented to hospital because of shortness of breath, dyspnea. Patient states that over the last 1-1/2 weeks she has been having a cough with clear phlegm production. She started developing a pain in her back around the right lower rib cage that has progressively getting worse. She states that Monday of this week she ran out of her HCTZ. As well as she ran out of her Proventil inhaler. Since then she's been experiencing increased lower extremity edema, dyspnea on exertion, shortness of breath, and orthopnea. Patient states that she cannot lay flat at all that she has to prop herself up and a full sitting position. Patient states that she does have COPD and she used to use Proventil as well as Advair. However she has ran out of those medications. Because her symptoms did not improve she came to the emergency department for evaluation. Patient had workup done which did indicate bilateral infiltrates on chest x-ray , hypoxemia with O2 saturation 89% with ABG.. Patient states that she did have significant wheezing. She was given nebulizer treatments in the emergency department with significant improvement of her respiratory status. Patient was recommended admission for further evaluation and management. CBC/BMP: 12/13/16 0450 12/13/16 0450 Significant Findings Laboratory Tests Test 12/13/16 04:50 Red Blood Count 3.98 MIL/MM3 (4.00-5.30) Hemoglobin 11.0 GM/DL (11.6-15.3) Hematocrit 33.4 % (35.0-46.0) Neutrophils (%) (Auto) 81.7 % (16.0-70.0) Random Glucose 181 MG/DL (74-106) Albumin 3.0 GM/DL (3.4-5.0) Aspartate Amino Transf (AST/SGOT) 14 U/L (15-37) PE at Discharge GENERAL: Well-nourished, well-developed pleasant obese Afro-Northern [place] female patient. SKIN: Warm and dry. HEAD: Normocephalic. EYES: No scleral icterus. No injection or drainage. NECK: Supple, trachea midline. No JVD or lymphadenopathy. CARDIOVASCULAR: Regular rate and rhythm without murmurs, gallops, or rubs. RESPIRATORY: Breath sounds equal bilaterally. Prolonged expiratory phase bilaterally with end expiratory wheeze. No accessory muscle use. GASTROINTESTINAL: Abdomen soft, non-tender, nondistended. EXTREMITIES: No cyanosis, or edema. NEUROLOGICAL: Awake, alert, and oriented x 3. Non-focal. Pt Condition on Discharge: Stable Discharge Disposition: Discharge Home Discharge Time: > 30 minutes Discharge Instructions DIET: Follow Instructions for: Diabetic Diet Activities you can perform: Regular-No Restrictions Mariluz Martin MD Dec 15, 2016 10:10
--- NOTE | 2016-12-15 11:52 | HHI.DS ---
Discharge Summary Admission Date Dec 12, 2016 at 06:15 Discharge Date: Dec 15, 2016 Admitting Diagnosis community-acquired bilateral pneumonia, hypoxemia (1) Community acquired pneumonia ICD Code: J18.9 - Pneumonia, unspecified organism Diagnosis: Principal Status: Acute (2) Hypoxemia ICD Code: R09.02 - Hypoxemia Diagnosis: Principal Status: Acute (3) Chronic obstructive pulmonary disease ICD Code: J44.9 - Chronic obstructive pulmonary disease, unspecified Diagnosis: Principal Procedures None Brief History - From Admission 56-year-old female with known history of chronic affective pulmonary disease, chronic smoking, hypertension, history of tachycardia, diabetes, panic attacks who presented to hospital because of shortness of breath, dyspnea. Patient states that over the last 1-1/2 weeks she has been having a cough with clear phlegm production. She started developing a pain in her back around the right lower rib cage that has progressively getting worse. She states that Monday of this week she ran out of her HCTZ. As well as she ran out of her Proventil inhaler. Since then she's been experiencing increased lower extremity edema, dyspnea on exertion, shortness of breath, and orthopnea. Patient states that she cannot lay flat at all that she has to prop herself up and a full sitting position. Patient states that she does have COPD and she used to use Proventil as well as Advair. However she has ran out of those medications. Patient has also continued to smoke cigarettes. Because her symptoms did not improve she came to the emergency department for evaluation. Patient had workup done which did indicate bilateral infiltrates on chest x-ray, hypoxemia with O2 saturation 89% with ABG.. Patient states that she did have significant wheezing. She was given nebulizer treatments in the emergency department with significant improvement of her respiratory status. Patient was recommended admission for further evaluation and management. CBC/BMP: 12/13/16 0450 12/13/16 0450 Significant Findings Laboratory Tests Test 12/13/16 04:50 Red Blood Count 3.98 MIL/MM3 (4.00-5.30) Hemoglobin 11.0 GM/DL (11.6-15.3) Hematocrit 33.4 % (35.0-46.0) Neutrophils (%) (Auto) 81.7 % (16.0-70.0) Random Glucose 181 MG/DL (74-106) Albumin 3.0 GM/DL (3.4-5.0) Aspartate Amino Transf (AST/SGOT) 14 U/L (15-37) PE at Discharge GENERAL: Well-nourished, well-developed pleasant obese Afro-[place] female patient. SKIN: Warm and dry. HEAD: Normocephalic. EYES: No scleral icterus. No injection or drainage. NECK: Supple, trachea midline. No JVD or lymphadenopathy. CARDIOVASCULAR: Regular rate and rhythm without murmurs, gallops, or rubs. RESPIRATORY: Breath sounds equal bilaterally. Prolonged expiratory phase bilaterally with end expiratory wheeze. No accessory muscle use. GASTROINTESTINAL: Abdomen soft, non-tender, nondistended. EXTREMITIES: No cyanosis, or edema. NEUROLOGICAL: Awake, alert, and oriented x 3. Non-focal. Ears: Tympanic membranes clear, ear canals clear. Pt update on day of discharge Patient today complains of postnasal drip and a sense of fullness in her ears. She states she normally takes allergy medications but has not been doing so lately. Patient also complains of having anxiety this morning. Hospital Course The patient was admitted to the hospital and treated for pneumonia with Rocephin , Zithromax also treated for COPD with steroids and bronchodilators. Symptoms did steadily improve. The patient does not require home oxygen per walk test. The patient was encouraged to stop smoking cigarettes. The patient will be discharged home today with the Peterson Reed inhalers. She is to follow-up with her primary care physician within one week. Pt Condition on Discharge: Stable Discharge Disposition: Discharge Home Discharge Time: > 30 minutes Discharge Instructions DIET: Follow Instructions for: Diabetic Diet Activities you can perform: Regular-No Restrictions Follow up Referrals: PCP Follow-up - 3-5 Days New Medications: Albuterol 18 GM Inh (Ventolin Hfa 18 GM Inh) 90 Mcg/Act Aer 2 PUFF INH Q4-6H PRN for SHORTNESS OF BREATH, #1 INHALER 0 Refills Fluticasone-Vilanterol Inh (Breo Ellipta Inh) 100-25 Mcg/Act Inh 1 PUFF INH DAILY for COPD, #1 INHALER 0 Refills Use daily at the same time. Levofloxacin (Levaquin) 750 Mg Tablet 750 MG PO DAILY for Infection, #5 TAB 0 Refills Methylprednisolone Dosepak (Medrol Dosepak) 4 Mg Dspk 4 MG PO DIRECTED, #1 DSPK 0 Refills Per Pharmacist direction Continued Medications: Amlodipine (Amlodipine) 5 Mg Tab 5 MG PO DAILY for Blood Pressure Management, #30 TAB 0 Refills Escitalopram (Lexapro) 10 Mg Tab 10 MG PO DAILY, #30 TAB 0 Refills Fexofenadine ([place] Allergy) 180 Mg Tab 180 MG PO DAILY for Allergy Management, #30 TAB 0 Refills Gabapentin (Gabapentin) 400 Mg Cap 400 CAP PO TID, #30 CAP 0 Refills Glipizide (Glipizide) 10 Mg Tab 10 MG PO BIDAC for Blood Sugar Management, #60 TAB 0 Refills Take 30 minutes before a meal Hydrochlorothiazide (Hydrochlorothiazide) 25 Mg Tab 25 MG PO DAILY, #30 TAB 0 Refills Levothyroxine (Levothyroxine) 75 Mcg Tab 75 MCG PO DAILY for Thyroid, #30 TAB 0 Refills Lisinopril (Lisinopril) 2.5 Mg Tab 2.5 MG PO DAILY, #30 TAB 0 Refills Metformin (Metformin) 1,000 Mg Tab 1000 MG PO BIDPC for Blood Sugar Management, #60 TAB 0 Refills With meals Metoprolol Tartrate (Metoprolol Tartrate) 25 Mg Tab 25 MG PO BID, #60 TAB 0 Refills Nabumetone (Nabumetone) 500 Mg Tab 500 MG PO BID for Pain-Inflammation, #60 TAB 0 Refills Omeprazole (Omeprazole) 20 Mg Tab 20 MG PO DAILY, #30 TAB 0 Refills Pioglitazone Hcl (Actos 15 mg) 15 Mg Tab 30 MG PO DAILY, TAB Ranitidine (Ranitidine) 150 Mg Tab 150 MG PO BID for Heartburn Management, #60 TAB 0 Refills Mariluz Martin MD Dec 15, 2016 11:52
== END 2016-12-15 12:08 | disposition home or self-care (01) | DRG 190 ==
LOC: PHED 03:52 → PHEDA 06:15 → PH3A 07:38
PROVIDERS: ADMIT Family Medicine; ATTEND Family Medicine
DX: J44.1 Chronic obstructive pulmonary disease with (acute) exacerbation (principal); J18.9 Pneumonia, unspecified organism; I47.1 Supraventricular tachycardia; Z68.42 Body mass index [BMI] 45.0-49.9, adult; J44.0 Chronic obstructive pulmonary disease with (acute) lower respiratory infection; R09.02 Hypoxemia; R60.0 Localized edema; I10 Essential (primary) hypertension; F41.0 Panic disorder [episodic paroxysmal anxiety]; E11.9 Type 2 diabetes mellitus without complications; K21.9 Gastro-esophageal reflux disease without esophagitis; F17.210 Nicotine dependence, cigarettes, uncomplicated; E66.9 Obesity, unspecified
CPT/HCPCS: 36600; 71020; 80048; 80053; 82805; 82948; 83880; 84484; 85025; 87040; 94620; 94640; 94664; 96365; 96375; J0456; J0696; J1815; J1940; J2920; J2930; J7050

== ENCOUNTER 2017-09-05 14:13 | Emergency (ER) | payer SELFPAY ==
[~2017-09-05] VITALS: Ht 170.2 cm; Wt 140.6 kg
[~2017-09-05 14:13] MED LIST changes: +AMLO5TAB2 PO; -AMLO5TAB22 PO; -BENZ100 PO; +FEXO15TA PO; +FLUT1INH INH; +GLIP10TA6 PO; -GLIP5 PO; -GLUC1000 PO; -HYDR12.56 PO; +HYDR25TA5 PO; +LEVA750T9 PO; +LEVO75TA3 PO; +LEXA10TA PO; +LISI2.5T3 PO; -LISI2.5T55 PO; +MEDR4PAK PO; +METF1000 PO; +METO25TA3 PO; +NABU1TAB37 PO; +OMEP20TA93 PO; +RANI150T PO; +VENTAER INH; -ZITH250T PO
[2017-09-05 14:15] VITALS: BP 131/67; PULSE 68; RESP 16; TEMP 98.8; O2SAT 95
--- NOTE | 2017-09-05 14:56 | PD ---
HPI Chief Complaint: Injury Time Seen by Provider: 14:28 Travel History International Travel<30 days: No Contact w/Intl Traveler<30days: No Traveled to known affect area: No History of Present Illness HPI This is a 56-year-old female here with left third digit pain 3 days. She reports she stubbed the toe on a piece of furniture while walking barefoot. She has had pain and swelling since. No altered sensation or weakness in the toe or foot. Pain with range of motion and weightbearing. Symptom severity is moderate. PFSH Past Medical History Hx Anticoagulant Therapy: No Asthma: Yes Cardiovascular Problems: Yes COPD: Yes Diabetes: Yes Patient Takes Glucophage: Yes Diminished Hearing: No GERD: Yes Hiatal Hernia: Yes Hypertension: Yes Respiratory: Yes Thyroid Disease: Yes Influenza Vaccination: Yes ?: Not Menopausal: Yes : 5 Para: 4 Miscarriage: 1 Ovarian Cysts: Yes (RUPTURED, LEFT OVARY) Tubal Ligation: Yes (l. ovary and tube removal) Past Surgical History Gynecologic Surgery: Yes (LEFT SALPINGO-OOPHERECTOMY) Other Surgery: Yes Social History Alcohol Use: No Tobacco Use: Yes Substance Use: No Allergies-Medications (Allergen,Severity, Reaction): Coded Allergies: Sulfa (Sulfonamide Antibiotics) (Unverified Allergy, Severe, itching , ) Reported Meds & Prescriptions Reported Meds & Active Scripts Active Ventolin Hfa 18 GM Inh (Albuterol Sulfate) 90 Mcg/Act Aer 2 Puff INH Q4-6H PRN Reported Actos 15 mg (Pioglitazone HCl) 15 Mg Tab 30 Mg PO DAILY Gabapentin 400 Mg Cap 400 Cap PO TID Glipizide 10 Mg Tab 10 Mg PO BIDAC Take 30 minutes before a meal Metformin (Metformin HCl) 1,000 Mg Tab 1,000 Mg PO BIDPC With meals Amlodipine (Amlodipine Besylate) 5 Mg Tab 5 Mg PO DAILY Lisinopril 2.5 Mg Tab 2.5 Mg PO DAILY Lexapro (Escitalopram Oxalate) 10 Mg Tab 10 Mg PO DAILY Nabumetone 500 Mg Tab 500 Mg PO BID Metoprolol Tartrate 25 Mg Tab 25 Mg PO BID Hydrochlorothiazide 25 Mg Tab 25 Mg PO DAILY Review of Systems Except as stated in HPI: all other systems reviewed are Neg General / Constitutional: No: Fever Eyes: No: Visual changes HENT: No: Headaches Cardiovascular: No: Chest Pain or Discomfort Respiratory: No: Shortness of Breath Gastrointestinal: No: Abdominal Pain Genitourinary: No: Dysuria Physical Exam Narrative GENERAL: Alert and well-appearing 56-year-old female SKIN: Warm and dry. HEAD: Normocephalic. EYES: No injection or drainage. NECK: Supple MUSCULOSKELETAL: No cyanosis. Left foot: There is notable swelling, ecchymosis and tenderness to the third digit. No deformity. Sensation intact. Cap refill intact. Data Data Last Documented VS Vital Signs Date Time Temp Pulse Resp B/P (MAP) Pulse Ox O2 Delivery O2 Flow Rate FiO2 09/05/17 14:15 98.8 68 16 131/67 (88) 95 Orders Orders Foot, Complete ([id number]) (09/05/17 ) Shoe Post Op (09/05/17 ) [facility] Medical Decision Making Medical Screen Exam Complete: Yes Emergency Medical Condition: Yes Differential Diagnosis Toe fracture, toe sprain, contusion Narrative Course 56-year-old female here with left toe injury. Extremities neurovascularly intact. X-ray per official read as negative for fracture. Per my review I see cortical irregularity of the third mid phalanx consistent with a nondisplaced fracture. She will be treated for toe fracture. Diagnosis Primary Impression: Toe fracture Qualified Codes: S92.525A - Nondisplaced fracture of middle phalanx of left lesser toe(s), initial encounter for closed fracture Referrals: Michela Fonseca DPM [employer] Departure Forms: Tests/Procedures, Work Release Enter return to work date: Sep 06, 2017 Special Instructions: No prolonged standing or extensive walking Additional Instructions: Postop shoe as directed. Ibuprofen 800 g every 6 hours for pain. Ice and elevate extremity. Follow-up with podiatry. Disposition: 01 DISCHARGE HOME Condition: Stable Josi Schaefer Sep 05, 2017 14:56
--- NOTE | 2017-09-05 15:19 | RADRPT ---
EXAM DATE: 09/05/2017 3:15 PM EDT AGE/SEX: 56 years / Female INDICATIONS: Patient complains of pain in left foot after kicking bed post in middle of the night. M ajority of pain to 2nd and 3rd digits. CLINICAL DATA: This is the patient's initial encounter. Patient reports that signs and symptoms have been present for 1 day and indicates a pain score of 6/10. MEDICAL/SURGICAL HISTORY: None. None. COMPARISON: No prior exams available for comparison. FINDINGS: Three views of the left foot demonstrate no fracture or dislocation. Mineralization is within normal limits. The Lisfranc joint appears intact. 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 No soft t issue abnormality or radiopaque foreign body is identified. CONCLUSION: No acute left foot abnormality is identified. Electronically signed by: Bharat Lutz MD 09/05/2017 3:17 PM EDT
== END 2017-09-05 16:02 | disposition home or self-care (01) ==
LOC: PHEFT 14:13
DX: S92.525A Nondisplaced fracture of middle phalanx of left lesser toe(s), initial encounter for closed fracture (principal); E11.9 Type 2 diabetes mellitus without complications; I10 Essential (primary) hypertension; W22.03XA Walked into furniture, initial encounter; Y93.01 Activity, walking, marching and hiking; Z72.0 Tobacco use; Z79.84 Long term (current) use of oral hypoglycemic drugs
CPT/HCPCS: 73630; 99283; L3260